=== PATIENT | female | born 1970 | race Caucasian/White ===

== ENCOUNTER → 2018-09-08 | Outpatient (CLI) | payer MEDICARE, MEDICAID ==
[~2018-09-08] MED LIST: IBUP-1223 PO
[2018-09-08 14:31] LABS: MICROSCOPIC NOT IND
[2018-09-08 14:33] LABS: BASOPHILS # (AUTO) 0.02 x10^3/uL (0-0.1); BASOPHILS % (AUTO) 0 % (0-1); EOSINOPHILS # (AUTO) 0.12 x10^3/uL (0-0.4); EOSINOPHILS % (AUTO) 2 % (1-7); LYMPHOCYTES # (AUTO) 1.51 x10^3/uL (1-3.4); LYMPHOCYTES % (AUTO) 19 % (22-44); MD NO; MEAN CORPUSCULAR HEMOGLOBIN 28.6 pg (27.0-34.8); MEAN CORPUSCULAR VOLUME 89.3 fL (80-100); MEAN PLATELET VOLUME 7.5 fL (7.4-10.4); MONOCYTES # (AUTO) 0.51 x10^3/uL (0.2-0.8); MONOCYTES % (AUTO) 6 % (2-9); NEUTROPHILS # (AUTO) 5.74 x10^3/uL (1.8-6.8); NEUTROPHILS % (AUTO) 73 % (42-75); PLATELET COUNT 292 x10^3/uL (130-400); RED BLOOD COUNT 4.71 x10^6/uL (3.82-5.3)
[2018-09-08 14:34] LABS: CULTURE INDICATED? NO
[2018-09-08 14:41] LABS: INTERNATIONAL NORMALIZED RATIO 0.93 (0.93-1.1); PROTHROMBIN TIME 9.8 Seconds (9.6-11.5)
[2018-09-08 14:44] LABS: CALCIUM 8.4 mg/dL (8.5-10.1); CHLORIDE 108 mmol/L (98-107)
[2018-09-08 14:52] LABS: ALANINE AMINOTRANSFERASE 27 U/L (12-78); ALBUMIN 3.5 g/dL (3.4-5.0); ALKALINE PHOSPHATASE 92 U/L (45-117); ANION GAP 10 mmol/L (5-15); BILIRUBIN,TOTAL 1.3 mg/dL (0.2-1.0); TOTAL PROTEIN 7.4 g/dL (6.4-8.2)
== END | disposition home or self-care (01) ==
LOC: STAR 13:32
PROVIDERS: ATTEND Neurological Surgery
DX: Z01.818 Encounter for other preprocedural examination (principal); M48.061 Spinal stenosis, lumbar region without neurogenic claudication; M43.16 Spondylolisthesis, lumbar region; M47.816 Spondylosis without myelopathy or radiculopathy, lumbar region; R94.31 Abnormal electrocardiogram [ECG] [EKG]
CPT/HCPCS: 36415; 71046; 72110; 80053; 81003; 85025; 85610; 85730; 93005

== ENCOUNTER 2018-09-16 10:38 | Inpatient (IN) | payer MEDICARE, MEDICAID ==
[~2018-09-16] VITALS: Ht 156.2 cm; Wt 99.2 kg
[~2018-09-16 10:38] MED LIST changes: +BACITRACIN 50,000 UNIT ONE; +BUPIVACAINE/EPI 0.5% 1:200K ONE; +THROMBIN 5,000 UNIT VIAL TP ONE; +VANCOMYCIN 1,000 MG ONE
[2018-09-16] MEDS ORDERED: FENTANYL PF 250 MCG/5ML ONE ×2 (10:40→14:09)
[2018-09-16] MEDS ORDERED: MIDAZOLAM 1 MG/ML, 2ML ONE (10:40)
[2018-09-16] MEDS ORDERED: NEOSTIGMINE 1 MG/ML, 10ML ONE (10:41)
[2018-09-16] MEDS ORDERED: GLYCOPYRROLATE 0.2MG/1ML, 5ML ONE (10:41)
[2018-09-16] MEDS ORDERED: PROPOFOL 10 MG/ML, 20ML ONE (10:41)
[2018-09-16] MEDS ORDERED: ROCURONIUM 10MG/ML,5ML ONE (10:41)
[2018-09-16] MEDS ORDERED: SUCCINYLCHOLINE 20 MG/ML, 10ML ONE (10:41)
[2018-09-16] MEDS ORDERED: LIDOCAINE-MPF 2% ,5ML ONE (10:41)
[2018-09-16] MEDS ORDERED: CEFAZOLIN 1,000 MG ONE (10:41)
[2018-09-16] MEDS ORDERED: ONDANSETRON 2MG/ML, 2ML ONE (10:41)
[2018-09-16] MEDS ORDERED: DEXAMETHASONE 4 MG/ML, 1ML ONE (10:41)
[2018-09-16] MEDS ORDERED: LACTATED RINGERS 1,000 ML IV SCH ×2 (11:36→11:46)
[2018-09-16] MEDS ORDERED: OXYcodone IR 5MG TABLET PO ONE (12:00)
[2018-09-16] MEDS ORDERED: GABAPENTIN 300 MG CAPSULE PO ONE (12:00)
[2018-09-16] MEDS ORDERED: ACETAMINOPHEN 500 MG TABLET PO ONE (12:00)
[2018-09-16] MEDS ORDERED: LIDOCAINE-MPF 1%, 2ML INFIL ONE (12:00)
[2018-09-16] MEDS ORDERED: PROPOFOL 0 ML ONE (14:03)
[2018-09-16] MEDS ORDERED: PROMETHAZINE 25 MG/ML, 1ML IV PRN (14:30)
[2018-09-16] MEDS ORDERED: FENTANYL PF 100 MCG/2ML IV PRN (14:30)
[2018-09-16] MEDS ORDERED: HYDROmorphone 2 MG/ML, 1ML IVPush PRN (14:30)
[2018-09-16] MEDS ORDERED: ONDANSETRON ODT 8 MG PO PRN (14:30)
[2018-09-16] MEDS ORDERED: ONDANSETRON 2MG/ML, 2ML IV PRN (14:30)
[2018-09-16] MEDS ORDERED: LORazepam 2 MG/ML, 1ML IVPush PRN (14:30)
[2018-09-16] MEDS ORDERED: OXYcodone 5 MG/5 ML ORAL.SOL UDC PO PRN (14:30)
[2018-09-16] MEDS ORDERED: VANCOMYCIN 1,000 MG IM ONE (14:35)
[2018-09-16] MEDS ORDERED: PROPOFOL 100 ML ONE (15:17)
[2018-09-16] MEDS ORDERED: FENTANYL PF 100 MCG/2ML ONE ×3 (15:36→17:13)
[2018-09-16] MEDS ORDERED: THROMBIN 5,000 UNIT VIAL TP ONE ×2 (15:59→16:21)
[2018-09-16] MEDS ORDERED: METHOCARBAMOL 1,000 MG in DEXTROSE 5% 100 ML IV ONE (17:00)
[2018-09-16] MEDS ORDERED: OXYcodone 5 MG/5 ML ORAL.SOL UDC ONE (17:13)
[2018-09-16] MEDS ORDERED: HYDROmorphone 2 MG/ML, 1ML ONE (17:29)
[2018-09-16 19:00] VITALS: BP 109/73
[2018-09-16] MEDS: D5%-0.9% NACL+KCL 20MEQ 1,000 ML IV SCH (19:00)
[2018-09-16] MEDS ORDERED: HYDROcodone/APAP 5/325 TABLET PO PRN (19:00)
[2018-09-16] MEDS ORDERED: DIPHENHYDRAMINE 50 MG/ML, 1ML IM PRN (19:00)
[2018-09-16] MEDS ORDERED: PROMETHAZINE 25 MG/ML, 1ML IM PRN (19:00)
[2018-09-16] MEDS ORDERED: HYDROmorphone 2MG TABLET PO PRN (19:00)
[2018-09-16] MEDS ORDERED: BISACODYL 10 MG SUPP PR PRN (19:00)
[2018-09-16] MEDS ORDERED: DIPHENHYDRAMINE 50 MG CAPSULE PO PRN (19:00)
[2018-09-16] MEDS ORDERED: DIPHENHYDRAMINE 50 MG/ML, 1ML IVPush PRN (19:00)
[2018-09-16] MEDS: HYDROmorphone 2 MG/ML, 1ML IM PRN (19:14)
[2018-09-16] MEDS: CEFAZOLIN PMX 1GM/50ML 50 ML IVPB SCH (22:13)
[2018-09-16] MEDS: OXYcodone/APAP 5/325MG TABLET PO PRN (22:13)
[2018-09-16] MEDS: METHOCARBAMOL 750 MG TABLET PO PRN (22:13)
[2018-09-17 01:00] VITALS: BP 110/61
[2018-09-17] MEDS: HYDROmorphone 2 MG/ML, 1ML IM PRN ×3 (01:16→22:37)
[2018-09-17] MEDS: ONDANSETRON 2MG/ML, 2ML IV PRN ×2 (02:15→12:24)
[2018-09-17] MEDS: OXYcodone/APAP 5/325MG TABLET PO PRN ×4 (04:33→18:57)
[2018-09-17 04:36] VITALS: BP 100/66
[2018-09-17 05:32] LABS: BASOPHILS % (AUTO) 0 % (0-1); EOSINOPHILS % (AUTO) 0 % (1-7); LYMPHOCYTES # (AUTO) 0.69 x10^3/uL (1-3.4); LYMPHOCYTES % (AUTO) 7 % (22-44); MD NO; MEAN CORPUSCULAR HGB CONC 34.3 g/dL (32.4-35.8); MEAN CORPUSCULAR VOLUME 90.4 fL (80-100); MEAN PLATELET VOLUME 8.6 fL (7.4-10.4); MONOCYTES # (AUTO) 0.31 x10^3/uL (0.2-0.8); MONOCYTES % (AUTO) 3 % (2-9); NEUTROPHILS # (AUTO) 8.95 x10^3/uL (1.8-6.8); NEUTROPHILS % (AUTO) 90 % (42-75); PLATELET COUNT 134 x10^3/uL (130-400); RED CELL DISTRIBUTION WIDTH 15.1 % (9.6-15.2)
[2018-09-17 05:47] LABS: ANION GAP 8 mmol/L (5-15); CALCIUM 8.1 mg/dL (8.5-10.1); CHLORIDE 106 mmol/L (98-107)
[2018-09-17] MEDS: CEFAZOLIN PMX 1GM/50ML 50 ML IVPB SCH (06:51)
[2018-09-17] MEDS: D5%-0.9% NACL+KCL 20MEQ 1,000 ML IV SCH ×2 (06:51→15:00)
[2018-09-17 07:57] VITALS: BP 106/59
[2018-09-17] MEDS ORDERED: SODIUM CHLORIDE 0.9%, 500ML IVBOLUS ONE (08:00)
[2018-09-17] MEDS: SENNA/DOCUSATE TABLET PO SCH (09:27)
[2018-09-17 12:16] VITALS: BP 96/61
[2018-09-17] MEDS: ENOXAPARIN 40 MG/0.4 ML SQ SCH (14:00)
[2018-09-17 18:39] VITALS: BP 105/56
[2018-09-17] MEDS: METHOCARBAMOL 750 MG TABLET PO PRN (20:05)
[2018-09-18] MEDS: OXYcodone/APAP 5/325MG TABLET PO PRN ×6 (00:01→20:51)
[2018-09-18] MEDS: D5%-0.9% NACL+KCL 20MEQ 1,000 ML IV SCH ×3 (00:11→20:51)
[2018-09-18] MEDS: ONDANSETRON 2MG/ML, 2ML IV PRN ×2 (00:11→14:06)
[2018-09-18 00:18] VITALS: BP 98/58
[2018-09-18 07:00] VITALS: BP 101/65
[2018-09-18] MEDS: MAGNESIUM HYDROXIDE 8%, 30ML UDC PO PRN (08:12)
[2018-09-18] MEDS: SENNA/DOCUSATE TABLET PO SCH (08:12)
[2018-09-18] MEDS: KETOROLAC 10MG TABLET PO SCH ×3 (10:28→22:28)
[2018-09-18] MEDS: METHOCARBAMOL 750 MG TABLET PO PRN (13:40)
[2018-09-18] MEDS: ENOXAPARIN 40 MG/0.4 ML SQ SCH ×2 (13:42→16:30)
[2018-09-18 15:10] VITALS: BP 104/69
[2018-09-18 18:33] VITALS: BP 122/58
[2018-09-18 18:39] VITALS: BP 100/62
[2018-09-19] MEDS: METHOCARBAMOL 750 MG TABLET PO PRN ×2 (00:15→16:13)
[2018-09-19 00:51] VITALS: BP 97/63
[2018-09-19] MEDS: OXYcodone/APAP 5/325MG TABLET PO PRN ×3 (00:55→09:30)
[2018-09-19] MEDS: ONDANSETRON 2MG/ML, 2ML IV PRN ×2 (00:59→13:57)
[2018-09-19] MEDS: KETOROLAC 10MG TABLET PO SCH ×2 (04:43→11:29)
[2018-09-19] MEDS: D5%-0.9% NACL+KCL 20MEQ 1,000 ML IV SCH (05:19)
[2018-09-19] MEDS ORDERED: OXYC-302 PO (08:46)
[2018-09-19] MEDS ORDERED: METH750T87 PO (08:47)
[2018-09-19] MEDS ORDERED: ENOX40SY4 SQ (08:49)
[2018-09-19] MEDS ORDERED: SENN-177 PO (08:50)
[2018-09-19] MEDS ORDERED: BISA10SU2 PR (08:51)
[2018-09-19] MEDS ORDERED: DIPH25CA61 PO (08:53)
[2018-09-19] MEDS ORDERED: MAGN400O7 PO (08:56)
[2018-09-19 09:11] VITALS: BP 97/60
[2018-09-19] MEDS: SENNA/DOCUSATE TABLET PO SCH (09:30)
[2018-09-19] MEDS: MAGNESIUM HYDROXIDE 8%, 30ML UDC PO PRN (13:31)
[2018-09-19 13:34] VITALS: BP 124/78
[2018-09-19] MEDS: ENOXAPARIN 40 MG/0.4 ML SQ SCH (16:30)
== END 2018-09-19 16:30 | DRG 454 ==
LOC: ORIP 11:18 → 4NOR 18:11
PROVIDERS: ADMIT Neurological Surgery; ATTEND Neurological Surgery
PROC: 0SG3071 Fusion of Lumbosacral Joint with Autologous Tissue Substitute, Posterior Approach, Posterior Column, Open Approach (ICD-10-PCS; 2018-09-16)
PROC: 0SG30AJ Fusion of Lumbosacral Joint with Interbody Fusion Device, Posterior Approach, Anterior Column, Open Approach (ICD-10-PCS; 2018-09-16)
PROC: 0SG0071 Fusion of Lumbar Vertebral Joint with Autologous Tissue Substitute, Posterior Approach, Posterior Column, Open Approach (ICD-10-PCS; 2018-09-16)
PROC: 0SB20ZZ Excision of Lumbar Vertebral Disc, Open Approach (ICD-10-PCS; 2018-09-16)
PROC: 4A11X4G Monitoring of Peripheral Nervous Electrical Activity, Intraoperative, External Approach (ICD-10-PCS; 2018-09-16)
PROC: 01NB0ZZ Release Lumbar Nerve, Open Approach (ICD-10-PCS; 2018-09-16)
PROC: 0SG00AJ Fusion of Lumbar Vertebral Joint with Interbody Fusion Device, Posterior Approach, Anterior Column, Open Approach (ICD-10-PCS; principal; 2018-09-16 13:30)
DX: M51.16 Intervertebral disc disorders with radiculopathy, lumbar region (principal); Z68.41 Body mass index [BMI] 40.0-44.9, adult; F32.9 Major depressive disorder, single episode, unspecified; G89.29 Other chronic pain; I10 Essential (primary) hypertension; M51.37 Other intervertebral disc degeneration, lumbosacral region; M48.061 Spinal stenosis, lumbar region without neurogenic claudication; M43.16 Spondylolisthesis, lumbar region; E66.01 Morbid (severe) obesity due to excess calories; Z79.899 Other long term (current) drug therapy
CPT/HCPCS: 36415; 72100; 72131; 80048; 81025; 85025; 86850; 86900; C1713; C1729; G0378; J0690; J1100; J1170; J1650; J2250; J2405; J2704; J2710; J3010; J3370; C1763; J0330; J1200; J2800; J3480; J7120

== ENCOUNTER 2018-09-23 19:39 | Emergency (ER) | payer MEDICARE, MEDICAID ==
[~2018-09-23] VITALS: Ht 157.5 cm; Wt 92.6 kg
[~2018-09-23 19:39] MED LIST changes: -BACITRACIN 50,000 UNIT ONE; +BISA10SU2 PR; -BUPIVACAINE/EPI 0.5% 1:200K ONE; +DIPH25CA61 PO; +ENOX40SY4 SQ; +MAGN400O7 PO; +METH750T87 PO; +OXYC-302 PO; +SENN-177 PO; -THROMBIN 5,000 UNIT VIAL TP ONE; -VANCOMYCIN 1,000 MG ONE
[2018-09-23] MEDS ORDERED: SODIUM CHLORIDE FLUSH 10ML SYR IVF ONE (20:00)
[2018-09-23 20:46] LABS: ALBUMIN 3.2 g/dL (3.4-5.0); ANION GAP 7 mmol/L (5-15); CALCIUM 8.6 mg/dL (8.5-10.1); CHLORIDE 106 mmol/L (98-107)
[2018-09-23 20:47] LABS: BASOPHILS # (AUTO) 0.04 x10^3/uL (0-0.1); BASOPHILS % (AUTO) 0 % (0-1); EOSINOPHILS # (AUTO) 0.24 x10^3/uL (0-0.4); EOSINOPHILS % (AUTO) 2 % (1-7); LYMPHOCYTES # (AUTO) 1.21 x10^3/uL (1-3.4); LYMPHOCYTES % (AUTO) 12 % (22-44); MEAN CORPUSCULAR HEMOGLOBIN 28.2 pg (27.0-34.8); MEAN CORPUSCULAR HGB CONC 31.8 g/dL (32.4-35.8); MEAN CORPUSCULAR VOLUME 88.5 fL (80-100); MEAN PLATELET VOLUME 7.6 fL (7.4-10.4); MONOCYTES # (AUTO) 0.37 x10^3/uL (0.2-0.8); MONOCYTES % (AUTO) 4 % (2-9); NEUTROPHILS # (AUTO) 8.27 x10^3/uL (1.8-6.8); NEUTROPHILS % (AUTO) 82 % (42-75); PLATELET COUNT 354 x10^3/uL (130-400); RED BLOOD COUNT 4.09 x10^6/uL (3.82-5.3); RED CELL DISTRIBUTION WIDTH 15.3 % (9.6-15.2)
[2018-09-23 20:48] LABS: HEMOGRAM NOTE RECHECKED
[2018-09-23 20:51] LABS: ALANINE AMINOTRANSFERASE 84 U/L (12-78); ALKALINE PHOSPHATASE 92 U/L (45-117); BILIRUBIN,TOTAL 0.9 mg/dL (0.2-1.0); CREATININE 1.06 mg/dL (0.55-1.02); TOTAL PROTEIN 7.8 g/dL (6.4-8.2)
[2018-09-23 20:53] LABS: MD SCAN
--- NOTE | 2018-09-23 20:56 | NUR ---
PT HAS HAD PAIN SINCE SURGERY 09/16. PT HERE FCOMPLAINING OF LOWER BACK PAIN, NUMBNESS TO LEG AND FREQUENT URINATION. VSS. FAMILY AT BEDSIDE. PT UNABLE TO GIVE UA AT THIS TIME. CALL LIGHT IN REACH.
--- NOTE | 2018-09-23 21:08 | NUR ---
PA AT BEDSIDE
--- NOTE | 2018-09-23 21:49 | NUR ---
PIV ATTEMPTED X 2. WILL HAVE ANOTHER RN PLACE
--- NOTE | 2018-09-23 22:06 | NUR ---
MRI SHEET FAXED. UNABLE TO OBTAIN PIV ACCESS. AT THIS TIME. [employer]CRAFT PAINTER APPRENTICE AWARE.
--- NOTE | 2018-09-23 22:11 | NUR ---
PIV PLACED. PT WAITING FOR MRI.
--- NOTE | 2018-09-23 22:30 | NUR ---
PT AT MRI
[2018-09-23] MEDS ORDERED: GADOBUTROL 10 MMOL/10 ML PFS ONE (22:40)
--- NOTE | 2018-09-23 23:00 | NUR ---
PT RESTING WITH NO NEEDS AT THIS TIME. VSS. CALL LIGHT IN REACH
--- NOTE | 2018-09-24 00:13 | NUR ---
PT TO HAVE US. PT HAS NO NEEDS AT THIS TIME. VSS. CALL LIGHT IN REACH
--- NOTE | 2018-09-24 00:41 | NUR ---
PT ASSITED TO BATHROOM. PT ABLE TO AMBULATE WITH STAND BY ASSIST.
[2018-09-24 01:15] VITALS: BP 12/71
--- NOTE | 2018-09-24 02:12 | NUR ---
Patient given discharge instructions and they have confirmed that they understand the instructions. Patient ambulatory with steady gait.
== END 2018-09-24 02:15 | disposition home or self-care (01) ==
LOC: ED 09-24 00:41
DX: R20.0 Anesthesia of skin (principal); R60.0 Localized edema
CPT/HCPCS: 36415; 72158; 80053; 85025; 93971; 99284; A9585

== ENCOUNTER 2018-10-21 16:11 | Emergency (ER) | payer MEDICARE, MEDICAID ==
[2018-10-21] MEDS ORDERED: SODIUM CHLORIDE FLUSH 10ML SYR IVF ONE (17:00)
[2018-10-21 17:17] LABS: BASOPHILS % (AUTO) 0 % (0-1); EOSINOPHILS # (AUTO) 0.09 x10^3/uL (0-0.4); EOSINOPHILS % (AUTO) 1 % (1-7); LYMPHOCYTES # (AUTO) 1.08 x10^3/uL (1-3.4); LYMPHOCYTES % (AUTO) 15 % (22-44); MD NO; MEAN CORPUSCULAR HEMOGLOBIN 27.9 pg (27.0-34.8); MEAN CORPUSCULAR HGB CONC 32.6 g/dL (32.4-35.8); MEAN CORPUSCULAR VOLUME 85.5 fL (80-100); MEAN PLATELET VOLUME 7.8 fL (7.4-10.4); MONOCYTES # (AUTO) 0.42 x10^3/uL (0.2-0.8); MONOCYTES % (AUTO) 6 % (2-9); NEUTROPHILS # (AUTO) 5.47 x10^3/uL (1.8-6.8); NEUTROPHILS % (AUTO) 77 % (42-75); PLATELET COUNT 286 x10^3/uL (130-400); RED BLOOD COUNT 3.99 x10^6/uL (3.82-5.3); RED CELL DISTRIBUTION WIDTH 14.9 % (9.6-15.2)
[2018-10-21 17:29] LABS: ALANINE AMINOTRANSFERASE 23 U/L (12-78); ALBUMIN 3.5 g/dL (3.4-5.0); ANION GAP 4 mmol/L (5-15); CALCIUM 8.7 mg/dL (8.5-10.1); CHLORIDE 110 mmol/L (98-107)
[2018-10-21 17:32] LABS: ALKALINE PHOSPHATASE 96 U/L (45-117); BILIRUBIN,TOTAL 0.7 mg/dL (0.2-1.0); CREATININE 0.82 mg/dL (0.55-1.02); TOTAL PROTEIN 7.5 g/dL (6.4-8.2)
--- NOTE | 2018-10-21 17:56 | NUR ---
PT TO ROOM FROM LOBBY
--- NOTE | 2018-10-21 18:01 | NUR ---
PT PRESENTED TO ED AFTER HAVING BACK SURGERY ON SEPTEMBER 16. PT DEVELOPED A BLOOD CLOT IN LEG AND WAS STARTED ON XARELTO. XARELTO WAS DISCONTINUED WHEN PATIENT HAD MENSTRUCAL CYCLE WITH EXTENSIVE BLEEDING. PT IS ALSO HAVING PROBLEMS WITH BOWELS.
--- NOTE | 2018-10-21 18:11 | NUR ---
ASSISTED MD WITH RECTAL EXAM FOR RECTAL TONE. PT VERY UPSET AND STATING THAT THE DOCTOR HAS NOT DONE ANYTHING FOR HER.
--- NOTE | 2018-10-21 18:19 | NUR ---
REPORT GIVEN TO GENA VENEGAS
--- NOTE | 2018-10-21 18:55 | NUR ---
UA COLLECTED AND SENT TO THE LAB. DR. PALACIO SPOKE WITH PT EARLIER AND PT REFUSED PAIN MEDS. WAITING FOR RESULTS.
[2018-10-21 19:02] LABS: MICROSCOPIC AUTO
[2018-10-21 19:04] LABS: CULTURE INDICATED? NO
--- NOTE | 2018-10-21 19:30 | NUR ---
MRI SCREENING FORM COMPLETED AND FAXED TO MRI. 3 P'S ADDRESSED. PT DENIES ANY NEEDS AT THIS TIME.
--- NOTE | 2018-10-21 20:35 | NUR ---
PT TO MRI.
--- NOTE | 2018-10-21 21:03 | NUR ---
PT STILL IN MRI.
[2018-10-21 21:12] VITALS: BP 114/69
--- NOTE | 2018-10-21 21:12 | NUR ---
PT BACK FROM MRI. VSS. 3 P'S ADDRESSED. PT DENIES ANY NEEDS AT THIS TIME. CALL LIGHT GIVEN TO PT.
== END 2018-10-21 22:08 | disposition home or self-care (01) ==
LOC: ED 19:11
DX: M54.5 Low back pain (principal); R53.1 Weakness; G89.29 Other chronic pain; Z86.718 Personal history of other venous thrombosis and embolism
CPT/HCPCS: 36415; 72148; 80053; 81001; 85025; 99284